=== PATIENT | male | born 1960 | race Caucasian/White ===

== ENCOUNTER → 2021-06-02 15:13 | Outpatient (CLI) | payer OTHER, SELFPAY ==
--- NOTE | ~2021-06-02 | XR_ITS ---
EXAMINATION: XR shoulder RT min 2V DATE: 06/02/2021 15:27 INDICATION: Right shoulder pain. TECHNIQUE: 4 views of right shoulder were obtained. COMPARISON: None. FINDINGS: Bone alignment is normal at the shoulder. No fracture. There is mild osteoarthritis of manish ohumeral joint and acromioclavicular joint. IMPRESSION: 1. Mild polyarticular osteoarthritis. Reviewed, dictated and finalized at location A. ER TIRE AND TUBES SUPERVISOR
== END ==
PROVIDERS: Visit Provider Internal Medicine
DX: M19.011 Primary osteoarthritis, right shoulder (principal)
CPT/HCPCS: 73030

== ENCOUNTER → 2021-07-07 08:37 | Outpatient (CLI) | payer OTHER, SELFPAY ==
--- NOTE | ~2021-07-07 | MR_ITS ---
EXAMINATION: MR shoulder RT wo con DATE: 07/07/2021 09:24 INDICATION: Right shoulder pain TECHNIQUE: Magnetic resonance imaging (MRI) of the right shoulder was performed without intravenous c ontrast. Sequences included axial PD-weighted FS FSE, coronal oblique PD-weighted FS FSE, coronal obl ique T2-weighted FS FSE, sagittal PD-weighted FS FSE, and sagittal T1-weighted SE. COMPARISON: Right shoulder radiographs dated 06/02/2021 FINDINGS: Coracoacromial arch: The acromion undersurface is curved in morphology (type II). The coracoacromial ligament is normal. M ild acromioclavicular osteoarthritis. Rotator cuff: SUPRASPINATUS tendinopathy without discrete tear. Moderate subscapularis tendinopathy with complete a vulsion of the lesser tuberosity attachment of the tendon approximately 2.5 cm medial retraction of t he torn tendon margin. The bursal side of the tendon remains intact and contiguous with the intact tr ansverse humeral ligament. The infraspinatus and teres minor tendons are normal. There is medial retr action of the subscapularis muscle belly without significant fatty atrophy. Biceps tendon, glenoid labrum and glenohumeral cartilage: Long head of the biceps tendon appears normal but is medially dislocated from the intertubercular paul ove and across the subscapularis tendon tear defect extending cephalad to the glenoid anchor along th e medial side of the lesser tuberosity. The inferior and anteroinferior glenoid labrum is diminutive with likely degenerative fraying along the margins of the anteroinferior labrum. Glenohumeral cartila ge is normal. Fluid: Large glenohumeral joint effusion which extends through the full-thickness subscapularis tendon tear to communicate with the subscapularis bursa consistent with small amounts of fluid extending cephalad into the subacromial/subdeltoid bursa. No loose osteochondral bodies. Bones: Bone alignment is normal. No fracture or pathologic marrow replacing process. IMPRESSION: 1. Complete tear of the lesser tuberosity insertion of the subscapularis tendon some residual intact bursal sided fibers contiguous with the transverse humeral ligament. 2. Medial dislocation of the otherwise normal-appearing long head biceps tendon across the lesser tub erosity/subscapularis tendon tear defect. 3. Degeneration of the diminutive inferior and anteroinferior glenoid labrum. 4. Large right glenohumeral joint effusion. Reviewed, dictated and finalized at location A. QUALITY ASSURANCE ENGINEER IMPRESSION: 1. Complete tear of the lesser tuberosity insertion of the subscapularis tendon some residual intact bursal sided fibers contiguous with the transverse donald l ligament. 2. Medial dislocation of the otherwise normal-appearing long head biceps tendon across the lesser tuberosity/subscapularis tendon tear defect. 3. Degeneration of the diminutive inferior and anteroinferior glenoid labrum. 4. Large right glenohumeral joint effusion.
== END ==
PROVIDERS: PCP Internal Medicine
DX: M25.411 Effusion, right shoulder (principal); S46.811A Strain of other muscles, fascia and tendons at shoulder and upper arm level, right arm, initial encounter; X58.XXXA Exposure to other specified factors, initial encounter
CPT/HCPCS: 73221

== ENCOUNTER 2022-04-03 14:11 | Outpatient (CLI) | payer OTHER, SELFPAY ==
--- NOTE | ~2022-04-03 | DEXA_ITS ---
Bone Density Report Name: MALLORY GARCIA Age: 61 Sex: Male Ethnicity: White Date of : 1960 Indication: osteoporosis Referring Provider: ISABEL SPRINGER Study: Bone densitometry was performed. Exam Date: April 03, 2022 Accession number: [id number] Bone Density: Region BMD T-score Z-score Classification AP Spine(L1-L4) 0.863 -2.1 -1.5 Osteopenia Femoral Neck (Left) 0.831 -0.7 0.2 Normal Total Hip (Left) 1.006 -0.2 0.3 Normal Femoral Neck (Right) 0.815 -0.8 0.1 Normal Total Hip (Right) 1.000 -0.2 0.2 Normal Total Hip Mean 1.003 -0.2 0.3 Normal World Health Organization criteria for BMD impression classify patients as: Normal (T-score at or above -1.0), Osteopenia (T-score between -1.0 and -2.5), or Osteoporosis (T-score at or below -2.5). 10-year Fracture Risk(1): Major Osteoporotic Fracture 4.4% Hip Fracture 0.3% Reported Risk Factors: [place] (), Neck BMD=0.815, BMI=22.1 (1) FRAX(R) Version 3.08. Fracture probability calculated for an untreated patient. Fracture probability may be lower if the patient has received treatment. Clinical Information Provided by Patient: Has used the following medications: Vitamin D Patient maximum height was 73 Drinks caffeinated beverages Impression: The patient has low bone mass, based on the Total Spine T-score. The patient has an estimated ten-year risk of hip fracture of 0.3% and an estimated ten-year risk of major fracture of 4.4%, based on the WHO FRAX algorithm. Discussion: BONE DENSITY IS LOW AT ONE OR MORE SKELETAL SITES. This patient's lowest T-score is low at one or more skeletal sites. It meets the World Health Organization's (WHO) criteria for ?low bone mass? (T-score between -1.0 and -2.5). The patient's 10-year risk of fracture as calculated by FRAX is less than the threshold where pharmacological therapy is recommended by the National Osteoporosis Foundation (NOF). However, all treatment decisions require clinical judgment and consideration of individual patient factors, including patient preferences, comorbidities, previous drug use, risk factors not captured in the FRAX model (e.g., frailty, falls, vitamin D deficiency, increased bone turnover, interval significant decline in bone density) and possible under or overestimation of fracture risk by FRAX. The patient should follow a healthful lifestyle (good nutrition with adequate calcium and vitamin D, and appropriate weight-bearing exercise). Follow-Up: Consider repeating this study in 2 to 3 years to reassess this patient's status, or sooner if there is some new clinical indication. Reported by: DELL on 04/03/2022 2:37:00 PM. Reviewed, dictated and finalized at location ADonna LINDO
== END 2022-04-03 14:12 | disposition home or self-care (01) ==
PROVIDERS: PCP Internal Medicine; Visit Provider Internal Medicine
DX: M81.0 Age-related osteoporosis without current pathological fracture (principal); M85.88 Other specified disorders of bone density and structure, other site
CPT/HCPCS: 77080

== ENCOUNTER 2022-04-26 11:21 | Outpatient (CLI) | payer OTHER, SELFPAY ==
[2022-04-26 13:02] LABS: Kit Draw Collected
== END 2022-04-26 11:22 | disposition home or self-care (01) ==
LOC: ANHLAB 11:24
PROVIDERS: PCP Internal Medicine
DX: R76.8 Other specified abnormal immunological findings in serum (principal); M04.9 Autoinflammatory syndrome, unspecified
CPT/HCPCS: 36415

== ENCOUNTER 2023-11-22 10:31 | Outpatient (CLI) | payer OTHER, SELFPAY ==
[2023-11-26 15:15] LABS: Kit Draw Collected
== END 2023-11-22 10:32 | disposition home or self-care (01) ==
PROVIDERS: PCP Internal Medicine; Visit Provider Chiropractor
DX: M04.9 Autoinflammatory syndrome, unspecified (principal)
CPT/HCPCS: 36415

== ENCOUNTER 2024-08-17 10:30 | Outpatient (CLI) | payer OTHER, SELFPAY ==
--- NOTE | ~2024-08-17 | US_ITS ---
EXAMINATION: US renal BI DATE: 08/17/2024 10:50 INDICATION: Abnormal labs. Nephrolithiasis. TECHNIQUE: Multiple ultrasound grayscale images of the kidneys were obtained. COMPARISON: None. FINDINGS: The right kidney measures 11.4 x 5.3 x 4.9 cm. The left kidney measures 11.8 x 4.5 x 6.1 cm. 3.1 cm a nechoic cyst at the mid left kidney. There is an abnormal appearance to the mid to upper left kidney with prominent thickening of the cortex relative to the lower pole and to the right kidney and with a ssociated prominent increased vascularity on color Doppler. There is no hydronephrosis in either kidn ey. No shadowing stones identified. The bladder is normal with bilateral ureteral jets visualized on color Doppler. IMPRESSION: 1. Abnormal prominent cortical thickening at the mid to upper pole the left kidney with prominent in creased vascular flow on color Doppler which could be due to regional pyelonephritis or malignancy. C orrelate with urinalysis and would recommend further evaluation with pre and postcontrast MRI or CT. Reviewed, dictated and finalized at location B. IMPRESSION: 1. Abnormal prominent cortical thickening at the mid to upper pole the left ki dney with prominent increased vascular flow on color Doppler which could be due to regional pyelonephritis or malignancy. Correlate with urinalysis and would recommend further evaluation with pre and postcontrast MRI or CT.
== END 2024-08-17 10:31 | disposition home or self-care (01) ==
LOC: GOSHIMG 10:30
PROVIDERS: PCP Internal Medicine; Visit Provider Internal Medicine Nephrology
DX: R79.89 Other specified abnormal findings of blood chemistry (principal); R76.8 Other specified abnormal immunological findings in serum
CPT/HCPCS: 76775

== ENCOUNTER 2024-08-17 10:48 | Outpatient (CLI) | payer OTHER, SELFPAY ==
--- OUTSIDE RECORDS SUMMARY | 2024-08-17 12:47 | XMS_ITS | Referral Summary ---
Author Organization [facility] Address [address] [place] [id number] Care Team Providers Care Briar Shop Supervisor Name Role Phone Mike Haq MD Primary Care Provider [phone] Allergies No known active allergies Medications fuzdl-3-lek-epa -dpa-fish oil 1,050-1,200 mg capsuleIndicati ons:supplement Take 1 capsule by mouth every morning Active lutein-zeaxanth in 25-5 mg capsuleIndicati ons:supplement Take 1 capsule by mouth every morning Active fluticasone propionate (FLONASE) 50 mcg/actuation nasal sprayIndication s:Allergic Rhinitis Administer 1 spray into each nostril daily Active Active Problems Problem Noted Date Diagnosed Date Right shoulder pain 07/10/2021 Overview (07/10/2021): Added automatically from request for surgery [id number] Full thickness tear of right subscapularis tendo n 07/10/2021 Overview (07/10/2021): Added automatically from request for surgery [id number] Social History Tobacco Use Types Packs/Day Years Used Date Smoking Tobacco: Never Smokeless Tobacco: Never AUDIT-C Answer Date Recorded Q1: How often do you have a drink containing alc ohol? 2-4 times a month 07/11/2021 Q2: How many drinks containi ng alcohol do you have on a typical day when you are drinking? 1 or 2 07/11/2021 Q3: How often do you have si x or more drinks on one occasion? Never 07/11/2021 Sex and Gender Information Value Date Recorded Sex Assigned at Not on file Legal Sex Male 2:48 PM BUDGET SPECIALIST Gender Identity Male 06/21/2021 11:10 PM BUDGET SPECIALIST Sexual Orientation Straight 06/21/2021 11 :10 PM BUDGET SPECIALIST Last Filed Vital Signs Vital Sign Reading Time Taken Comments Blood Pressure 144/82 07/13/2021 5:00 PM BUDGET SPECIALIST Pulse 62 07/13/2021 4:45 PM BUDGET SPECIALIST Temperature 36.2 C (97.16 F) 07/13/2021 4:30 PM BUDGET SPECIALIST Respiratory Rate 15 07/13/2021 5:00 PM BUDGET SPECIALIST Oxygen Saturation 97% 07/13/2021 5:00 PM BUDGET SPECIALIST Inhaled Oxygen Concentration - - Weight 77.1 kg (170 lb) 07/11/2021 9:30 AM BUDGET SPECIALIST Height 185.4 cm (6' 1 ) 07/11/2021 9:30 AM BUDGET SPECIALIST Body Mass Index 22.43 07/11/2021 9:30 AM BUDGET SPECIALIST Plan of Treatment Not on file Medical Devices Implanted Type Area Regional Vice President Surgical Sales Device Identifier Shelf Expiration Date Model / Serial / Lot [employer] Ar-3670 Set Implant Arthrex Fibertak Biceps Sterile Latex Free - [id number] Implanted:Qty: 1 on 07/13/2021 by Pipe Sanchez MD at [facility] Right: Shoulder [employer] [id number] 02/23/2026 AR-3670 / / [id number] [employer] Ar-1927bct Corkscrew Suturetape 5.5mm 14.7mm Bioabsorbable Full Thread 1.3mm - [id number] Implanted:Qty: 1 on 07/13/2021 by Pipe Sanchez MD at [facility] Right: Shoulder [employer] 03/26/2023 AR-1927BC T / / [id number] [employer] Ar-1927bct Corkscrew Suturetape 5.5mm 14.7mm Bioabsorbable Full Thread 1.3mm - [id number] Implanted:Qty: 1 on 07/13/2021 by Pipe Sanchez MD at [facility] Right: Shoulder [employer] 03/26/2023 AR-1927BC T / / [id number] [employer] Ar-2324 Bcm Swivelock 4.75mm 24.5mm Self Punch Vent Shoulder [place] Suture - [id number] Implanted:Qty: 1 on 07/13/2021 by Pipe Sanchez MD at [facility] Right: Shoulder [employer] 02/23/2025 AR-2324BC M / / [id number] Insurance CHOICE PLUS Care Teams Briar Shop Supervisor Relationship Specialty Start Date End Date Mike Haq MD [address] [facility] [address] [place] [id number] PCP - General Internal Medicine 06/07/21
--- OUTSIDE RECORDS SUMMARY | 2024-08-17 12:47 | XMS_ITS | Clinical Summary ---
Author Organization [facility] Address [address] [place] [id number] Care Team Providers Care Hose Sprayer Name Role Phone Mike Haq MD Primary Care Provider [phone]- [phone] Allergies No known active allergies Medications lntyw-0-xwl-epa -dpa-fish oil 1,050-1,200 mg capsuleIndicati ons:supplement Take [...] (07/10/2021): Added automatically from request for surgery [id number] Full thickness tear of right subscapularis tendo n 07/10/2021 Overview (07/10/2021): Added automatically from request for surgery [id number] Surgical History Surgery Date Site/Laterality Comments HERNIA REPAIR approximately age 5 LITHOTRIPSY COLONOSCOPY Medical History Medical History Date Comments Kidney stone 08/2017 Family History Medical History Relation Name Comments Heart disease Maternal Grandfather Brady Richards Anesthesia problems Neg Hx Relation Name Status Comments Maternal Grandfather Brady Richards Social History Tobacco Use Types Packs/Day Years [...] on file Legal Sex Male 2:48 PM TRAFFIC SAFETY ADMINISTRATOR Gender Identity Male 06/21/2021 11:10 PM TRAFFIC SAFETY ADMINISTRATOR Sexual Orientation Straight 06/21/2021 11 :10 PM TRAFFIC SAFETY ADMINISTRATOR Obstetrics History Last Filed Vital Signs Vital Sign Reading Time Taken Comments Blood Pressure 144/82 07/13/2021 5:00 PM TRAFFIC SAFETY ADMINISTRATOR Pulse 62 07/13/2021 4:45 PM TRAFFIC SAFETY ADMINISTRATOR Temperature 36.2 C (97.16 F) 07/13/2021 4:30 PM TRAFFIC SAFETY ADMINISTRATOR Respiratory Rate 15 07/13/2021 5:00 PM TRAFFIC SAFETY ADMINISTRATOR Oxygen Saturation 97% 07/13/2021 5:00 PM TRAFFIC SAFETY ADMINISTRATOR Inhaled Oxygen Concentration - - Weight 77.1 kg (170 lb) 07/11/2021 9:30 AM TRAFFIC SAFETY ADMINISTRATOR Height 185.4 cm (6' 1 ) 07/11/2021 9:30 AM TRAFFIC SAFETY ADMINISTRATOR Body Mass Index 22.43 07/11/2021 9:30 AM TRAFFIC SAFETY ADMINISTRATOR Plan of Treatment Health Maintenance Due Date Last Done Comments Colon Cancer Screening-Colonoscopy 1960 Depression Screening 1960 Hepatitis C Screening 1960 Prostate Cancer Screening-PSA 1962 Hepatitis B Screening 1980 Regular Well Visit/Exam 18-64 1980 Zoster Vaccine (1 of 2) 2012 Influenza Vaccine (#1) 2024 04/02/2017 DTaP/Tdap/Td Vaccine (2 - Td or Tdap) 08/28/2029 08/29/2019 Pneumococcal vaccine <65 Aged Out No longer eligible based on patient's age to complete this topic Medical Devices Implanted Type Area Validation Intern Device Identifier Shelf Expiration Date Model / Serial / Lot [employer] Ar-3670 Set Implant Arthrex Fibertak Biceps Sterile Latex Free - [id number] Implanted:Qty: 1 on 07/13/2021 by Pipe Sanchez MD at [facility] Right: Shoulder [employer] [id number] 02/23/2026 AR-3670 / / [id number] [employer] Ar-1927bct Corkscrew Suturetape 5.5mm 14.7mm Bioabsorbable Full Thread 1.3mm - [id number] Implanted:Qty: 1 on 07/13/2021 by Pipe Sanchez MD at [facility] Right: Shoulder [employer] 03/26/2023 AR-1927BC T / / [id number] [employer] Ar-1927bct Corkscrew Suturetape 5.5mm 14.7mm Bioabsorbable Full Thread 1.3mm - [id number] Implanted:Qty: 1 on 07/13/2021 by Pipe Sanchez MD at [facility] Right: Shoulder [employer] 03/26/2023 AR-1927BC T / / [id number] [employer] Ar-2324 Bcm Swivelock 4.75mm 24.5mm Self Punch Vent Shoulder [place] Suture - [id number] Implanted:Qty: 1 on 07/13/2021 by Pipe Sanchez MD at [facility] Right: Shoulder [employer] 02/23/2025 AR-2324BC M / / [id number] Insurance [id number] CHOICE PLUS [place] [phone] Care Teams Hose Sprayer Relationship Specialty Start Date End Date Mike Haq MD [address] [facility] [address] [place] [address] PCP - General Internal Medicine 06/07/21
--- OUTSIDE RECORDS SUMMARY | 2024-08-17 12:47 | XMS_ITS | Clinical Summary ---
Author Organization [facility] Address [address] [place] [address] Care Team Providers Care Washing Machine Repairer Name Role Phone Darinel Haqnorma Mujica DO Primary Care Provider [phone] Source Comments [facility],non-owned Affiliates and Associated Physician Practices is amultiple site organization consisting of ambulatory clinics and hospital sitesin [place], [place] and [place]. This disclosure is being madepursuant to the Care Everywhere program and may not contain all information available regarding this patient. Last updated 18.[facility] Allergies No known active allergies Immunizations Name Administration Dates Next Due INFLUENZA VACCINE, QUADR. (F LUZONE; FLULAVAL; FLUARIX; AFLURIA QUADRIVALENT; 6MO+), 0.5 ML (IIV4) 04/02/2017 TDAP (7yrs+) 08/29/2019 Social History Tobacco Use Types Packs/Day Years Used Date Smoking Tobacco: Never Assessed Sex and Gender Information Value Date Recorded Sex Assigned at Not on file Gender Identity Not on file Sexual Orientation Not on file Plan of Treatment Health Maintenance Due Date Last Done Comments COLOGUARD (AGES 45-75) - COL ON CA SCREENING 1960 COLON MONITORING 1962 COLONOSCOPY - COLON CA SCREENING 1962 CT COLONOGRAPHY - COLON CA SCREENING 1960 Colorectal Cancer Screening 1962 FIT - COLON CA SCREENING 1962 FLEX SIG - COLON CA SCREENING 1962 LIPID TESTING 1962 HIV SCREENING 1977 HEPATITIS C SCREENING 04/03/1980 PNEUMOCOCCAL VACCINE 50+ (1 of 1 - PCV) 2012 ZOSTER VACCINE (1 of 2) 2012 COVID-19 VACCINE (1 - 2023-2 5 season) 2024 INFLUENZA VACCINE (#1) 2024 04/02/2017 DEPRESSION SCREENING 05/27/2024 DTAP/TDAP/TD VACCINES (2 - T d or Tdap) 08/28/2029 08/29/2019 Respiratory Syncytial Virus (RSV) Vaccine Pt: or over 60 yrs (1 - 1-dose 75+ series) 2037 HEPATITIS B VACCINE Aged Out No longe r eligible based on patient's age to complete this topic HIB VACCINE Aged Out No longer eligi ble based on patient's age to complete this topic HPV VACCINE Aged Out No longer eligi ble based on patient's age to complete this topic MENINGOCOCCAL (Group B) VACC INE SHARED DECISION-MAKING Aged Out No longer eligibl e based on patient's age to complete this topic MENINGOCOCCAL GROUPS A/C/Y/W VACCINE Aged Out No longer eligible b ased on patient's age to complete this topic PNEUMOCOCCAL VACCINE Aged Out No long er eligible based on patient's age to complete this topic Care Teams Washing Machine Repairer Relationship Specialty Start Date End Date Mike Haq DO [address] [facility] [address] [place] [address] PCP - General Internal Medicine 04/02/17
[2024-08-17 16:03] LABS: Complement C3 49 mg/dL (88-165)
[2024-08-18 16:04] LABS: Anion Gap 6 mmol/L (4-12); Blood Urea Nitrogen 38 mg/dL (9-20); Calcium 9.1 mg/dL (8.4-10.2); Carbon Dioxide 30 mmol/L (22-30); Chloride 101 mmol/L (98-107); Estimated Glomerular Filt Rate > 60; Glucose 86 mg/dL (65-110); Phosphorus 3.4 mg/dL (2.5-4.5); Potassium 4.3 mmol/L (3.4-5.0); Sodium 137 mmol/L (137-145)
== END 2024-08-17 10:49 | disposition home or self-care (01) ==
LOC: ANHGOSHLAB 10:51
PROVIDERS: PCP Internal Medicine; Visit Provider Internal Medicine Nephrology
DX: R79.89 Other specified abnormal findings of blood chemistry (principal); R76.8 Other specified abnormal immunological findings in serum
CPT/HCPCS: 36415; 80069; 83520; 86036; 86160; 86225

== ENCOUNTER 2024-09-24 10:43 | Outpatient (CLI) | payer OTHER, SELFPAY ==
--- NOTE | ~2024-09-24 | MR_ITS ---
MRI of the abdomen: Clinical indication: Left renal infection/mass. Technique: Coronal SSFSE ARC, WATER:coronal LAVA-FLEX, Coronal 2D FIESTA FatSat, Axial SSFSE BH ARC, Axial 3D DualEcho BH, Axial SSFSE-IR, Axial DWI b=500, Axial 2D FIESTA FatSat, pre and dynamic postco ntrast Axial LAVA ARC, postcontrast Coronal In and Opposed phase LAVA FLEX . Following intravenous ad ministration of 15 cc MultiHance gadolinium, T1-weighted fat-sat imaging was performed in the axial and coronal planes. Findings: Gallbladder unremarkable.. The common bile duct is normal in course and caliber. No filling defects are seen within the CBD. No evidence of intrahepatic biliary ductal dilatation. The pancreat ic duct is normal in size. Simple left renal cyst present. No other renal abnormality seen on either side. Liver, spleen, pancreas, adrenals, appear normal. The aorta and the paraaortic regions appear normal. Impression: No significant renal abnormality. Simple left renal cyst present. Reviewed, dictated and finalized at location M. Impression: No significant renal abnormality. Simple left renal cyst present.
== END 2024-09-24 10:44 | disposition home or self-care (01) ==
LOC: MICIMG 10:44
PROVIDERS: PCP Internal Medicine; Visit Provider Internal Medicine Nephrology
DX: N18.2 Chronic kidney disease, stage 2 (mild) (principal); N28.89 Other specified disorders of kidney and ureter; N28.1 Cyst of kidney, acquired
CPT/HCPCS: 74183; A9577